=== PATIENT | female | born 2000 | race Caucasian/White ===

== ENCOUNTER → 2021-03-05 | Outpatient (CLI) | payer OTHER ==
--- NOTE | 2021-03-05 10:26 | RAD ---
EXAM: XR ABDOMEN 1V 03/05/2021 9:56 AM CLINICAL INDICATION: Diarrhea, abdominal cramping COMPARISON: None TECHNIQUE: AP view of the abdomen FINDINGS: Bowel gas pattern is nonspecific and nonobstructive. Normal volume of stool. No abnormal c alcifications. No acute osseous abnormality. The acetabula appear mildly dysplastic. IMPRESSION: No acute abnormality in the abdomen. Electronically signed by: Mary López MD (03/05/2021 10:24 AM) [id number]
== END ==
LOC: DXRAD 09:39
PROVIDERS: ATTEND Nurse Practitioner Family
DX: R19.7 Diarrhea, unspecified (principal)
CPT/HCPCS: 74018

== ENCOUNTER → 2021-05-31 | Outpatient (CLI) | payer OTHER ==
--- NOTE | 2021-05-31 18:52 | RAD ---
PA and lateral chest. HISTORY: Chest pain PA and lateral views were taken of the chest. Lungs are free of infiltrates. Heart is normal in size. There is no effusion. IMPRESSION: 1. No acute chest disease. Electronically signed by: Krystian Katz MD (05/31/2021 6:49 PM) [facility]
== END ==
LOC: DXRAD 18:28
PROVIDERS: ATTEND Nurse Practitioner Family
DX: R07.1 Chest pain on breathing (principal)
CPT/HCPCS: 71046